=== PATIENT | male | born 1980 | race Caucasian/White ===

== ENCOUNTER → 2017-02-06 | Outpatient (CLI) | payer OTHER ==
[2017-02-06 14:35] LABS: HEMOGLOBIN 17.7 gm/dl (14.0-17.5); RED BLOOD COUNT 5.1 M/UL (4.20-5.50); WHITE BLOOD COUNT 11.6 K/UL (4.5-11.0)
[2017-02-06 14:54] LABS: BUN/CREATININE RATIO 16 (0-10)
== END ==
LOC: LAB 13:43
PROVIDERS: Nurse Practitioner Family
DX: M54.5 Low back pain (principal); R53.83 Other fatigue; R63.1 Polydipsia
CPT/HCPCS: 36415; 80053; 80061; 81001; 82570; 83036; 84443; 85025

== ENCOUNTER → 2021-03-09 | Outpatient (CLI) | payer OTHER ==
[~2021-03-09] MED LIST: CIPRO500 MG PO; DOXYCYCLINE HY100 MG PO; FLAGYL500 MG PO; K-DUR TAB 20 M20 MEQ PO; LISINOPRIL10 MG PO
[2021-03-10 19:11] LABS: AMPHETAMINES, URINE Negative ng/mL (Cutoff=1000); BARBITURATE Negative ng/mL (Cutoff=200); BENZODIAZEPINES Negative ng/mL (Cutoff=200); CANNABINOIDS Negative ng/mL (Cutoff=20); COCAINE (METABOLITE) Negative ng/mL (Cutoff=300); CREATININE 62.5 mg/dL (20.0-300.0); MEPERIDINE Negative ng/mL (Cutoff=200); METHADONE Negative ng/mL (Cutoff=300); OPIATES Negative ng/mL (Cutoff=300); PHENCYCLIDINE Negative ng/mL (Cutoff=25); PROPOXYPHENE Negative ng/mL (Cutoff=300)
== END ==
LOC: LAB 10:26
PROVIDERS: Nurse Practitioner
DX: Z01.89 Encounter for other specified special examinations (principal)
CPT/HCPCS: 80307

== ENCOUNTER 2021-05-24 14:46 | Inpatient (IN) | payer OTHER ==
[~2021-05-24] VITALS: Ht 180.3 cm; Wt 190.5 kg
[2021-05-24 16:14] LABS: BUN/CREATININE RATIO 15 (0-10)
[2021-05-24 16:36] LABS: HEMOGLOBIN 15.2 gm/dl (14.0-17.5); RED BLOOD COUNT 4.45 M/UL (4.20-5.50)
[2021-05-24] MEDS ORDERED: SPIRONOLACTONE100 MG PO (20:16)
[2021-05-24] MEDS ORDERED: CARVEDILOL3.125 MG PO (20:17)
[2021-05-24] MEDS ORDERED: IBU800 MG PO (20:17)
[2021-05-24] MEDS ORDERED: LASIX40 MG PO (20:18)
[2021-05-24] MEDS ORDERED: COREG 3.125M3.125 MG PO (20:21)
[2021-05-25 04:03] LABS: HEMOGLOBIN 14.9 gm/dl (14.0-17.5); RED BLOOD COUNT 4.37 M/UL (4.20-5.50); WHITE BLOOD COUNT 8.8 K/UL (4.5-11.0)
[2021-05-25 04:23] LABS: BUN/CREATININE RATIO 12 (0-10)
[2021-05-25 19:58] LABS: TOTAL PROTEIN, BODY FLUID 1.7 gm/dL
[2021-05-26 07:29] LABS: BUN/CREATININE RATIO 16 (0-10)
[2021-05-26 08:29] LABS: HEMOGLOBIN 14.2 gm/dl (14.0-17.5); RED BLOOD COUNT 4.13 M/UL (4.20-5.50); WHITE BLOOD COUNT 7.5 K/UL (4.5-11.0)
[2021-05-26 11:38] LABS: BODY FLUID SOURCE ASCITES; RBC (MANUAL) 122; WBC (MANUAL) 45
[2021-05-26 11:39] LABS: MONONUCLEAR CELLS 99 %; POLYMORPHONUCLEAR 1 %
[2021-05-27 10:59] LABS: HEMOGLOBIN 14.6 gm/dl (14.0-17.5); RED BLOOD COUNT 4.29 M/UL (4.20-5.50); WHITE BLOOD COUNT 7.8 K/UL (4.5-11.0)
[2021-05-27 11:19] LABS: BUN/CREATININE RATIO 14 (0-10)
[2021-05-28 09:02] LABS: HEMOGLOBIN 15.4 gm/dl (14.0-17.5); RED BLOOD COUNT 4.25 M/UL (4.20-5.50); WHITE BLOOD COUNT 8.3 K/UL (4.5-11.0)
[2021-05-28 09:49] LABS: BUN/CREATININE RATIO 16 (0-10)
[2021-05-29 03:02] LABS: HEMOGLOBIN 15.7 gm/dl (14.0-17.5); RED BLOOD COUNT 4.4 M/UL (4.20-5.50); WHITE BLOOD COUNT 8.1 K/UL (4.5-11.0)
[2021-05-29 04:09] LABS: BUN/CREATININE RATIO 15 (0-10)
--- NOTE | 2021-05-29 18:17 | NUR ---
1335- ASSISTED DR ERICKSON WITH PARACENTESIS. TOLERATED WELL. 12L OF FLUID PULLED OFF AT THIS TIME. ALBUMIN GIVEN PER ORDERS. SITE CLEAN, DRY AND INTACT. NO DRAINAGE NOTED. WILL MONITOR.
[2021-05-30 07:57] LABS: RED BLOOD COUNT 4.19 M/UL (4.20-5.50)
[2021-05-30 08:12] LABS: BUN/CREATININE RATIO 17 (0-10)
[2021-05-30] MEDS ORDERED: VITAMIN B-1100 M1 PO (09:52)
[2021-05-30] MEDS ORDERED: LASIX40 MG PO (09:52)
[2021-05-30] MEDS ORDERED: SPIRONOLACTONE100 MG PO (09:52)
[2021-05-30] MEDS ORDERED: PROTONIX 40 MG40 M1 PO (09:52)
[2021-05-30] MEDS ORDERED: FOLIC ACID 1 MG1 MG PO (09:52)
== END 2021-05-30 17:30 | disposition home or self-care (01) | DRG 432 ==
LOC: ER1 14:46 → MED SURG 4 17:17 → CDU 17:17 → MED SURG 4 05-25 19:34
PROVIDERS: Internal Medicine; Physician Assistant; Physician Assistant Medical; ADMIT Internal Medicine
PROC: 0W9G3ZX Drainage of Peritoneal Cavity, Percutaneous Approach, Diagnostic (ICD-10-PCS; 2021-05-25)
PROC: BW40ZZZ Ultrasonography of Abdomen (ICD-10-PCS; 2021-05-25)
PROC: B24BZZ4 Ultrasonography of Heart with Aorta, Transesophageal (ICD-10-PCS; 2021-05-26)
PROC: 0W9G3ZZ Drainage of Peritoneal Cavity, Percutaneous Approach (ICD-10-PCS; principal; 2021-05-29)
PROC: BW40ZZZ Ultrasonography of Abdomen (ICD-10-PCS; 2021-05-29)
DX: K74.60 Unspecified cirrhosis of liver (principal); Z20.822 Contact with and (suspected) exposure to COVID-19; J96.01 Acute respiratory failure with hypoxia; I85.00 Esophageal varices without bleeding; R18.8 Other ascites; J90 Pleural effusion, not elsewhere classified; K76.6 Portal hypertension; Z68.43 Body mass index [BMI] 50.0-59.9, adult; D69.6 Thrombocytopenia, unspecified; D75.89 Other specified diseases of blood and blood-forming organs; F10.10 Alcohol abuse, uncomplicated; E66.01 Morbid (severe) obesity due to excess calories; F17.210 Nicotine dependence, cigarettes, uncomplicated; F32.9 Major depressive disorder, single episode, unspecified; E87.6 Hypokalemia; I16.0 Hypertensive urgency; Z87.01 Personal history of pneumonia (recurrent); Z90.49 Acquired absence of other specified parts of digestive tract; Z81.1 Family history of alcohol abuse and dependence; Z83.3 Family history of diabetes mellitus; Z80.9 Family history of malignant neoplasm, unspecified; Z80.0 Family history of malignant neoplasm of digestive organs
CPT/HCPCS: ECHO; 36415; 36600; 71045; 76705; 80053; 82550; 82553; 82803; 83036; 83735; 83874; 83880; 84132; 84157; 84484; 85025; 85027; 85610; 87070; 87205; 89051; 93005; 93306; 94760; 96365; 96375; 96376; 99285; G0378; J1940; P9045; P9047; U0002

== ENCOUNTER → 2021-06-02 | Outpatient (CLI) | payer OTHER ==
[~2021-06-02] MED LIST changes: +CARVEDILOL3.125 MG PO; +COREG 3.125M3.125 MG PO; +FOLIC ACID 1 MG1 MG PO; +IBU800 MG PO; +LASIX40 MG PO; +PROTONIX 40 MG40 M1 PO; +SPIRONOLACTONE100 MG PO; +VITAMIN B-1100 M1 PO
[2021-06-02 12:57] LABS: BUN/CREATININE RATIO 17 (0-10)
== END ==
LOC: LAB 10:41
PROVIDERS: Internal Medicine
DX: K74.60 Unspecified cirrhosis of liver (principal); R18.8 Other ascites
CPT/HCPCS: 36415; 80053

== ENCOUNTER 2021-06-13 12:58 | Emergency (ER) | payer OTHER ==
[2021-06-13 13:49] LABS: HEMOGLOBIN 15.9 gm/dl (14.0-17.5); RED BLOOD COUNT 4.45 M/UL (4.20-5.50); WHITE BLOOD COUNT 8.8 K/UL (4.5-11.0)
[2021-06-13 14:18] LABS: BUN/CREATININE RATIO 14 (0-10)
== END 2021-06-13 15:34 | disposition home or self-care (01) ==
LOC: ER1 12:58
PROVIDERS: Family Medicine
DX: J90 Pleural effusion, not elsewhere classified (principal); E66.01 Morbid (severe) obesity due to excess calories; F17.200 Nicotine dependence, unspecified, uncomplicated; Z87.738 Personal history of other specified (corrected) congenital malformations of digestive system
CPT/HCPCS: 36600; 71045; 80053; 82550; 82553; 82803; 83874; 84484; 85025; 93005; 99285

== ENCOUNTER → 2021-06-29 | Outpatient (CLI) | payer OTHER ==
[~2021-06-29] VITALS: Ht 180.3 cm; Wt 199.6 kg
[2021-06-29 11:59] LABS: BUN/CREATININE RATIO 15 (0-10)
== END ==
LOC: OPSV 10:00
PROVIDERS: Internal Medicine Gastroenterology
DX: K74.60 Unspecified cirrhosis of liver (principal); R18.8 Other ascites
CPT/HCPCS: 36415; 80048; 96365; C1729; P9047

== ENCOUNTER 2021-07-15 19:07 | Emergency (ER) | payer OTHER ==
[2021-07-15 22:02] LABS: RED BLOOD COUNT 4.57 M/UL (4.20-5.50); WHITE BLOOD COUNT 10.5 K/UL (4.5-11.0)
[2021-07-15 22:23] LABS: BUN/CREATININE RATIO 16 (0-10)
[2021-07-16 07:24] LABS: BODY FLUID SOURCE PERITONEAL
[2021-07-16 07:25] LABS: MONONUCLEAR CELLS 84.5 %; POLYMORPHONUCLEAR 15.5 %; RBC (AUTOMATED) 200 10^6; WBC (AUTOMATED) 58 10^3
== END 2021-07-16 06:54 | disposition home or self-care (01) ==
LOC: ER1 19:07
PROVIDERS: Family Medicine; Nurse Practitioner
DX: N39.0 Urinary tract infection, site not specified (principal); R18.8 Other ascites; I11.9 Hypertensive heart disease without heart failure; E78.5 Hyperlipidemia, unspecified; F17.200 Nicotine dependence, unspecified, uncomplicated; Z20.822 Contact with and (suspected) exposure to COVID-19
CPT/HCPCS: 71045; 80053; 81001; 82550; 82553; 82945; 83690; 83874; 84484; 85025; 85610; 87070; 87205; 89051; 93005; 96374; 96375; 99285; J0696; P9047; U0002

== ENCOUNTER → 2021-08-13 | Outpatient (CLI) | payer OTHER ==
[~2021-08-13] VITALS: Ht 180.3 cm; Wt 199.6 kg
== END ==
LOC: OPSV 10:00
PROVIDERS: Internal Medicine Gastroenterology
DX: K70.31 Alcoholic cirrhosis of liver with ascites (principal)
CPT/HCPCS: 36415; 80048; 96365; P9047

== ENCOUNTER → 2021-08-20 | Outpatient (CLI) | payer OTHER ==
[~2021-08-20] VITALS: Ht 180.3 cm; Wt 199.6 kg
== END ==
LOC: OPSV 09:57
DX: K70.31 Alcoholic cirrhosis of liver with ascites (principal); K75.81 Nonalcoholic steatohepatitis (NASH)
CPT/HCPCS: 96365; C1729; P9047

== ENCOUNTER → 2021-08-27 | Outpatient (CLI) | payer OTHER ==
[~2021-08-27] VITALS: Ht 180.3 cm; Wt 199.6 kg
== END ==
LOC: OPSV 10:00
DX: K70.31 Alcoholic cirrhosis of liver with ascites (principal); E66.01 Morbid (severe) obesity due to excess calories
CPT/HCPCS: 96365; C1729; P9047

== ENCOUNTER → 2021-08-31 | Outpatient (CLI) | payer OTHER ==
[~2021-08-31] VITALS: Ht 180.3 cm; Wt 199.6 kg
== END ==
LOC: OPSV 10:00
DX: K70.31 Alcoholic cirrhosis of liver with ascites (principal)
CPT/HCPCS: 36415; 96365; C1729; P9047

== ENCOUNTER → 2021-09-09 | Outpatient (CLI) | payer OTHER ==
[~2021-09-09] MED LIST changes: +CEPHALEXIN500 M1 PO; +HYDROCODON-ACE1 EAC2 PO
== END ==
LOC: LAB 11:40
PROVIDERS: Internal Medicine
DX: K74.60 Unspecified cirrhosis of liver (principal)
CPT/HCPCS: 36415; 80053

== ENCOUNTER → 2021-09-14 | Outpatient (CLI) | payer OTHER ==
[~2021-09-14] VITALS: Ht 180.3 cm; Wt 20.0 kg
[~2021-09-14] MED LIST changes: -CEPHALEXIN500 M1 PO; -HYDROCODON-ACE1 EAC2 PO
== END ==
LOC: OPSV 09:46
DX: K70.31 Alcoholic cirrhosis of liver with ascites (principal)
CPT/HCPCS: C1729; G0463; P9047

== ENCOUNTER → 2021-09-24 | Outpatient (CLI) | payer OTHER ==
[~2021-09-24] VITALS: Ht 180.3 cm; Wt 199.6 kg
== END ==
LOC: OPSV 10:00
DX: K70.31 Alcoholic cirrhosis of liver with ascites (principal)
CPT/HCPCS: 96365; P9047

== ENCOUNTER → 2021-10-08 | Outpatient (CLI) | payer OTHER ==
[~2021-10-08] MED LIST changes: +CEPHALEXIN500 M1 PO; +HYDROCODON-ACE1 EAC2 PO
== END | disposition home or self-care (01) ==
LOC: OPSV 10:00
DX: K70.31 Alcoholic cirrhosis of liver with ascites (principal)
CPT/HCPCS: 96365; C1729; P9047

== ENCOUNTER 2021-10-14 16:15 | Emergency (ER) | payer OTHER ==
[~2021-10-14 16:15] MED LIST changes: -CEPHALEXIN500 M1 PO; -HYDROCODON-ACE1 EAC2 PO
[2021-10-14 19:29] LABS: HEMOGLOBIN 16.1 gm/dl (14.0-17.5); RED BLOOD COUNT 4.74 M/UL (4.20-5.50); WHITE BLOOD COUNT 15.6 K/UL (4.5-11.0)
[2021-10-14] MEDS ORDERED: CEPHALEXIN500 M1 PO (21:59)
[2021-10-14] MEDS ORDERED: HYDROCODON-ACE1 EAC2 PO (22:09)
== END 2021-10-14 22:25 | disposition home or self-care (01) ==
LOC: ER1 16:15
PROVIDERS: Family Medicine
DX: S20.211A Contusion of right front wall of thorax, initial encounter (principal); N39.0 Urinary tract infection, site not specified; R10.11 Right upper quadrant pain; R55 Syncope and collapse; I10 Essential (primary) hypertension; F17.200 Nicotine dependence, unspecified, uncomplicated; Z87.442 Personal history of urinary calculi; W19.XXXA Unspecified fall, initial encounter
CPT/HCPCS: 71111; 80053; 81001; 82550; 82553; 83690; 83874; 84484; 85025; 93005; 99285; Q9967

== ENCOUNTER → 2021-10-22 | Outpatient (CLI) | payer OTHER ==
[~2021-10-22] VITALS: Ht 180.3 cm; Wt 199.6 kg
[~2021-10-22] MED LIST changes: +CEPHALEXIN500 M1 PO; +HYDROCODON-ACE1 EAC2 PO
== END ==
LOC: OPSV 09:57
DX: K70.31 Alcoholic cirrhosis of liver with ascites (principal)
CPT/HCPCS: 96365; C1729; P9047

== ENCOUNTER → 2021-10-29 | Outpatient (CLI) | payer OTHER | LOC: KOH-I 10-23 10:30 | DX: R55 Syncope and collapse (principal) | CPT/HCPCS: 70450 ==

== ENCOUNTER → 2021-11-05 | Outpatient (CLI) | payer OTHER ==
[~2021-11-05] VITALS: Ht 180.3 cm; Wt 199.6 kg
== END | disposition home or self-care (01) ==
LOC: OPSV 09:51
DX: K70.31 Alcoholic cirrhosis of liver with ascites (principal)
CPT/HCPCS: 96365; C1729; P9047

== ENCOUNTER → 2021-11-19 | Outpatient (CLI) | payer OTHER ==
[~2021-11-19] VITALS: Ht 180.3 cm; Wt 199.6 kg
== END ==
LOC: OPSV 09:36
DX: K70.31 Alcoholic cirrhosis of liver with ascites (principal)
CPT/HCPCS: 96365; C1729; P9047

== ENCOUNTER → 2021-11-26 | Outpatient (CLI) | payer OTHER | LOC: OPSV 10:00 | DX: K74.69 Other cirrhosis of liver (principal); R18.8 Other ascites | CPT/HCPCS: 96365; C1729; P9047 ==

== ENCOUNTER → 2021-12-10 | Outpatient (CLI) | payer OTHER ==
[~2021-12-10] VITALS: Ht 177.8 cm; Wt 199.6 kg
== END | disposition home or self-care (01) ==
LOC: OPSV 10:00
DX: K70.31 Alcoholic cirrhosis of liver with ascites (principal)
CPT/HCPCS: 96365; P9047

== ENCOUNTER → 2021-12-24 | Outpatient (CLI) | payer OTHER ==
[~2021-12-24] VITALS: Ht 180.3 cm; Wt 199.6 kg
[2021-12-24 10:12] LABS: HEMOGLOBIN 15.5 gm/dl (14.0-17.5); RED BLOOD COUNT 4.43 M/UL (4.20-5.50); WHITE BLOOD COUNT 11.1 K/UL (4.5-11.0)
== END ==
LOC: OPSV 12-23 10:00
PROVIDERS: Internal Medicine Gastroenterology
DX: K70.31 Alcoholic cirrhosis of liver with ascites (principal)
CPT/HCPCS: 80053; 85027; 85610; 96365; P9047

== ENCOUNTER → 2022-01-07 | Outpatient (CLI) | payer OTHER | END | disposition home or self-care (01) | LOC: OPSV 01-06 10:00 | PROVIDERS: Internal Medicine Gastroenterology | DX: K70.31 Alcoholic cirrhosis of liver with ascites (principal) | CPT/HCPCS: 80048; 96365; C1729; P9047 ==

== ENCOUNTER → 2022-01-21 | Outpatient (CLI) | payer OTHER | LOC: OPSV 09:49 | DX: K70.31 Alcoholic cirrhosis of liver with ascites (principal) | CPT/HCPCS: 96365; C1729; P9047 ==

== ENCOUNTER 2022-01-25 13:50 | Inpatient (IN) | payer OTHER ==
[~2022-01-25] VITALS: Ht 180.3 cm; Wt 142.9 kg
[~2022-01-25 13:50] MED LIST changes: -COREG 3.125M3.125 MG PO; +COREG3.125 MG PO
[2022-01-25 15:13] LABS: HEMOGLOBIN 16.9 gm/dl (14.0-17.5); RED BLOOD COUNT 4.79 M/UL (4.20-5.50); WHITE BLOOD COUNT 16.4 K/UL (4.5-11.0)
[2022-01-26 04:06] LABS: HEMOGLOBIN 14.3 gm/dl (14.0-17.5); RED BLOOD COUNT 4.21 M/UL (4.20-5.50); WHITE BLOOD COUNT 11.1 K/UL (4.5-11.0)
[2022-01-26] MEDS ORDERED: LASIX20 MG PO (10:07)
[2022-01-26] MEDS ORDERED: ALDACTONE100 MG PO (10:08)
[2022-01-27 08:09] LABS: HEMOGLOBIN 13.6 gm/dl (14.0-17.5); RED BLOOD COUNT 4.11 M/UL (4.20-5.50)
[2022-01-27 08:11] LABS: WHITE BLOOD COUNT 8.2 K/UL (4.5-11.0)
--- NOTE | 2022-01-27 14:09 | NUR ---
TRYING TO INFUSE ALBUMIN BUT PT TYING IV TUBING INTO KNOTS,BENDING IV TUBING IN TO PREVENTING ALBUMIN TO INFUSE
[2022-01-28 07:33] LABS: HEMOGLOBIN 13.2 gm/dl (14.0-17.5); RED BLOOD COUNT 3.93 M/UL (4.20-5.50); WHITE BLOOD COUNT 8.2 K/UL (4.5-11.0)
[2022-01-29 06:29] LABS: RED BLOOD COUNT 3.82 M/UL (4.20-5.50); WHITE BLOOD COUNT 7.5 K/UL (4.5-11.0)
[2022-01-29] MEDS ORDERED: XIFAXAN 550 MG550 MG PO (11:25)
[2022-01-29] MEDS ORDERED: ALDACTONE100 MG PO ×2 (11:25→11:33)
[2022-01-29] MEDS ORDERED: CHRONULAC20 GM/30 M PO (11:25)
== END 2022-01-29 13:45 | disposition home or self-care (01) | DRG 432 ==
LOC: ER1 13:50 → CDU 22:35 → M/S 22:35
PROVIDERS: Emergency Medicine; Internal Medicine; ADMIT Internal Medicine
DX: K70.30 Alcoholic cirrhosis of liver without ascites (principal); K72.00 Acute and subacute hepatic failure without coma; K76.7 Hepatorenal syndrome; G93.41 Metabolic encephalopathy; N17.9 Acute kidney failure, unspecified; I85.00 Esophageal varices without bleeding; E72.20 Disorder of urea cycle metabolism, unspecified; Z68.41 Body mass index [BMI] 40.0-44.9, adult; Z20.822 Contact with and (suspected) exposure to COVID-19; E86.0 Dehydration; E66.01 Morbid (severe) obesity due to excess calories; I10 Essential (primary) hypertension; F41.9 Anxiety disorder, unspecified; F10.10 Alcohol abuse, uncomplicated; F32.A Depression, unspecified; F17.210 Nicotine dependence, cigarettes, uncomplicated; E11.9 Type 2 diabetes mellitus without complications; Z98.890 Other specified postprocedural states; Z79.899 Other long term (current) drug therapy; Z79.82 Long term (current) use of aspirin
CPT/HCPCS: 0240U; 36415; 70450; 71045; 80053; 80076; 81001; 82140; 82150; 82248; 82550; 82553; 83036; 83605; 83690; 83735; 84100; 84439; 84443; 84484; 85025; 85610; 85730; 86140; 87040; 87086; 96365; 96375; 99285; G0378; J0696; J1644; J2405; J7030; P9047

== ENCOUNTER → 2022-02-04 | Outpatient (CLI) | payer OTHER ==
[~2022-02-04] VITALS: Ht 180.3 cm; Wt 199.6 kg
[~2022-02-04] MED LIST changes: +ALDACTONE100 MG PO; +CHRONULAC20 GM/30 M PO; +LASIX20 MG PO; +OMNICEF 300 MG300 MG PO; +XIFAXAN 550 MG550 MG PO
== END ==
LOC: OPSV 09:14
DX: R18.8 Other ascites (principal); K74.60 Unspecified cirrhosis of liver
CPT/HCPCS: 96365; C1729; P9047

== ENCOUNTER 2022-02-06 12:49 | Emergency (ER) | payer OTHER ==
[~2022-02-06 12:49] MED LIST changes: -OMNICEF 300 MG300 MG PO
[2022-02-06 13:39] LABS: HEMOGLOBIN 13.3 gm/dl (14.0-17.5); RED BLOOD COUNT 3.9 M/UL (4.20-5.50); WHITE BLOOD COUNT 12.3 K/UL (4.5-11.0)
[2022-02-06] MEDS ORDERED: OMNICEF 300 MG300 MG PO ×2 (16:22→16:28)
== END 2022-02-06 16:26 | disposition left against medical advice (07) ==
LOC: ER1 12:49
PROVIDERS: Physician Assistant Medical
DX: N39.0 Urinary tract infection, site not specified (principal); N20.2 Calculus of kidney with calculus of ureter; R06.02 Shortness of breath; R18.8 Other ascites; I10 Essential (primary) hypertension; F17.210 Nicotine dependence, cigarettes, uncomplicated
CPT/HCPCS: 71045; 80053; 81001; 82140; 83605; 85025; 85610; 93005; 99283

== ENCOUNTER → 2022-02-12 | Outpatient (CLI) | payer OTHER ==
[~2022-02-12] VITALS: Ht 180.3 cm; Wt 199.6 kg
[~2022-02-12] MED LIST changes: +OMNICEF 300 MG300 MG PO
[2022-02-12 13:41] LABS: HEMOGLOBIN 13.2 gm/dl (14.0-17.5); RED BLOOD COUNT 3.85 M/UL (4.20-5.50); WHITE BLOOD COUNT 14.3 K/UL (4.5-11.0)
== END ==
LOC: OPSV 02-11 10:00
PROVIDERS: Internal Medicine Gastroenterology
DX: K70.31 Alcoholic cirrhosis of liver with ascites (principal); K75.81 Nonalcoholic steatohepatitis (NASH)
CPT/HCPCS: 80048; 85027; 96365; P9047

== ENCOUNTER → 2022-02-25 | Outpatient (CLI) | payer OTHER | LOC: OPSV 09:38 | DX: K70.31 Alcoholic cirrhosis of liver with ascites (principal) | CPT/HCPCS: 96365; C1729; P9047 ==

== ENCOUNTER → 2022-03-11 | Outpatient (CLI) | payer OTHER ==
[~2022-03-11] VITALS: Ht 180.3 cm; Wt 199.6 kg
[2022-03-11 10:08] LABS: HEMOGLOBIN 14.4 gm/dl (14.0-17.5); RED BLOOD COUNT 4.22 M/UL (4.20-5.50); WHITE BLOOD COUNT 17.4 K/UL (4.5-11.0)
[2022-03-11 11:23] LABS: BODY FLUID SOURCE ASCITES
[2022-03-11 11:24] LABS: RBC (AUTOMATED) 9800 10^6; WBC (AUTOMATED) 65 10^3
[2022-03-11 11:25] LABS: MONONUCLEAR CELLS 80 %; POLYMORPHONUCLEAR 20 %
[2022-03-13 09:12] LABS: CREATININE, URINE 204.4 mg/dL (Not Estab.)
== END | disposition home or self-care (01) ==
LOC: OPSV 09:26
PROVIDERS: Internal Medicine Gastroenterology; Internal Medicine Nephrology
DX: K70.31 Alcoholic cirrhosis of liver with ascites (principal)
CPT/HCPCS: 80053; 81001; 82043; 82570; 85027; 87070; 87205; 89051; 96365; C1729; P9047

== ENCOUNTER → 2022-03-19 | Outpatient (CLI) | payer OTHER ==
[~2022-03-19] VITALS: Ht 180.3 cm; Wt 199.6 kg
== END ==
LOC: OPSV 10:00
DX: K70.31 Alcoholic cirrhosis of liver with ascites (principal); K76.6 Portal hypertension
CPT/HCPCS: 96365; C1729; P9047

== ENCOUNTER 2022-03-24 23:30 | Inpatient (IN) | payer OTHER ==
[~2022-03-24] VITALS: Ht 180.3 cm; Wt 147.0 kg
[~2022-03-24 23:30] MED LIST changes: -LASIX20 MG PO
[2022-03-25 00:48] LABS: HEMOGLOBIN 15.3 gm/dl (14.0-17.5); RED BLOOD COUNT 4.45 M/UL (4.20-5.50); WHITE BLOOD COUNT 20.4 K/UL (4.5-11.0)
--- NOTE | 2022-03-25 06:22 | NUR ---
PATIENT JUST ARRIVED ON FLOOR. PATIENT IS STABLE, A/OX4. CALL LIGHT WITHIN REACH.
[2022-03-25] MEDS ORDERED: FAMOTIDINE20 MG PO (11:24)
[2022-03-25] MEDS ORDERED: LACTULOSE10 GM/15 M PO (11:26)
[2022-03-25] MEDS ORDERED: SPIRONOLACTONE50 MG PO (11:28)
[2022-03-25] MEDS ORDERED: CARVEDILOL3.125 MG PO (11:30)
[2022-03-26 07:02] LABS: WHITE BLOOD COUNT 17.7 K/UL (4.5-11.0)
[2022-03-26 07:31] LABS: HEMOGLOBIN 12.6 gm/dl (14.0-17.5); RED BLOOD COUNT 3.73 M/UL (4.20-5.50)
[2022-03-27 01:56] LABS: HEMOGLOBIN 12.8 gm/dl (14.0-17.5); RED BLOOD COUNT 3.86 M/UL (4.20-5.50); WHITE BLOOD COUNT 14.9 K/UL (4.5-11.0)
--- NOTE | 2022-03-27 16:09 | NUR ---
1610- PT STATES HE WANTS TO LEAVE AMA. NOTIFIED DR. MONTGOMERY. PT SIGNED FORM AND IS LEAVING AMA. EDUCATED TO PATIENT RISK OF LEAVING.
== END 2022-03-27 16:24 | disposition left against medical advice (07) | DRG 871 ==
LOC: ER1 23:30 → CDU 03-25 04:07 → MED SURG 4 03-25 04:07
PROVIDERS: Family Medicine; Internal Medicine; ADMIT Internal Medicine
PROC: 3E03329 Introduction of Other Anti-infective into Peripheral Vein, Percutaneous Approach (ICD-10-PCS; principal; 2022-03-25)
PROC: 0W9G3ZZ Drainage of Peritoneal Cavity, Percutaneous Approach (ICD-10-PCS; 2022-03-27)
DX: A41.9 Sepsis, unspecified organism (principal); Z20.822 Contact with and (suspected) exposure to COVID-19; K76.7 Hepatorenal syndrome; N17.9 Acute kidney failure, unspecified; Z68.42 Body mass index [BMI] 45.0-49.9, adult; N18.4 Chronic kidney disease, stage 4 (severe); E87.1 Hypo-osmolality and hyponatremia; I85.00 Esophageal varices without bleeding; E87.3 Alkalosis; R65.20 Severe sepsis without septic shock; K70.31 Alcoholic cirrhosis of liver with ascites; Z53.21 Procedure and treatment not carried out due to patient leaving prior to being seen by health care provider; F10.10 Alcohol abuse, uncomplicated; I12.9 Hypertensive chronic kidney disease with stage 1 through stage 4 chronic kidney disease, or unspecified chronic kidney disease; E66.01 Morbid (severe) obesity due to excess calories; K72.90 Hepatic failure, unspecified without coma; E11.22 Type 2 diabetes mellitus with diabetic chronic kidney disease; E86.0 Dehydration; F32.A Depression, unspecified; F41.9 Anxiety disorder, unspecified; Z90.49 Acquired absence of other specified parts of digestive tract; Z82.49 Family history of ischemic heart disease and other diseases of the circulatory system; Z83.79 Family history of other diseases of the digestive system; Z87.891 Personal history of nicotine dependence
CPT/HCPCS: 36415; 71045; 80048; 80053; 80307; 81001; 82140; 82436; 82550; 82553; 83605; 83690; 83735; 83935; 84100; 84133; 84300; 84439; 84443; 84484; 85025; 86140; 87040; 87070; 87086; 87205; 93005; 96374; 99285; G0480; J0696; J1650; J2354; J2405; J2543; P9047; U0002